=== PATIENT | male | born 1950 | race Caucasian/White ===

== ENCOUNTER 2018-08-24 16:38 | Inpatient (IN) | payer MEDICARE ==
[~2018-08-24] VITALS: Ht 170.2 cm; Wt 78.2 kg
--- NOTE | 2018-08-24 16:57 | NUR ---
[facility] FROM [facility] FOR EVALUATION FOR PACEMAKER PLACEMENT. PT TO [facility] ED THIS AM WITH CO DIZZINESS W/ ACTIVITY AND AT REST. PT WITH SIMILAR EPISODE POST PREVIOUS ME "20 YEARS AGO". PT ARRIVES PWD; DENIES DIZZINESS/SOB/CP. SINUS BARRY ON MONITOR, HR 50'S W/ FREQUENT BIGEMINY. RADIAL PULSES STRONG. REPORTS "I FEEL FINE RIGHT NOW". ERP AT BEDSIDE FOR INITIAL ASSESSMENT. EKG COMPLETED UPON ARRIVAL. FAMILY AT BEDSIDE. BP/SPO2/ECG MONITORING IN PLACE. SINUS BARRY ON MONITOR.
[2018-08-24] MEDS ORDERED: ATOR-2 PO (17:00)
[2018-08-24] MEDS ORDERED: SODIUM CHLORIDE FLUSH 10ML SYR IVF ONE (17:00)
[2018-08-24] MEDS ORDERED: ASPI-496 PO (17:00)
[2018-08-24] MEDS ORDERED: CLON1TAB23 PO (17:00)
[2018-08-24] MEDS ORDERED: FLONASE (17:00)
[2018-08-24 17:11] LABS: BASOPHILS # (AUTO) 0.03 x10^3/uL (0-0.1); BASOPHILS % (AUTO) 1 % (0-1); EOSINOPHILS # (AUTO) 0.33 x10^3/uL (0-0.4); EOSINOPHILS % (AUTO) 5 % (1-7); LYMPHOCYTES # (AUTO) 2.09 x10^3/uL (1-3.4); LYMPHOCYTES % (AUTO) 32 % (22-44); MD NO; MEAN CORPUSCULAR HEMOGLOBIN 33.1 pg (27.5-34.5); MEAN CORPUSCULAR VOLUME 97.2 fL (81-97); MEAN PLATELET VOLUME 10.1 fL (7.4-10.4); MONOCYTES # (AUTO) 0.53 x10^3/uL (0.2-0.8); MONOCYTES % (AUTO) 8 % (2-9); NEUTROPHILS # (AUTO) 3.62 x10^3/uL (1.8-6.8); NEUTROPHILS % (AUTO) 55 % (42-75); PLATELET COUNT 157 x10^3/uL (130-400); RED BLOOD COUNT 4.73 x10^6/uL (4.38-5.82); RED CELL DISTRIBUTION WIDTH 13.9 % (9.4-14.8)
[2018-08-24 17:17] LABS: INTERNATIONAL NORMALIZED RATIO 1.01 (0.93-1.1); PROTHROMBIN TIME 10.6 Seconds (9.6-11.5)
[2018-08-24 17:18] LABS: ALBUMIN 3.5 g/dL (3.4-5.0); ANION GAP 5 mmol/L (5-15); CALCIUM 8.5 mg/dL (8.5-10.1); CHLORIDE 114 mmol/L (98-107); CREATININE 0.79 mg/dL (0.7-1.3)
--- NOTE | 2018-08-24 18:00 | NUR ---
PT RESTING IN GURNEY, AWAKE/ALERT. NAD NOTED. PT REMAINS SINUS BARRY W/ BIGEMINY. AWAITING ADMIT
--- NOTE | 2018-08-24 18:35 | NUR ---
HOSPITALIST AT BEDSIDE.
[2018-08-24] MEDS ORDERED: BISACODYL 10 MG SUPP PR PRN (19:30)
[2018-08-24] MEDS ORDERED: POLYETHYLENE GLYCOL 17 GM PACKET PO PRN (19:30)
[2018-08-24] MEDS ORDERED: ACETAMINOPHEN 325 MG TABLET PO PRN (19:30)
[2018-08-24] MEDS ORDERED: ONDANSETRON ODT 4 MG PO PRN (19:30)
--- NOTE | 2018-08-24 19:30 | NUR ---
PT REQUESTING TO WALK TO BATHROOM FOR BM. PT REFUSING TO USE BEDSIDE COMMODE RECOMMENDED D/T DIZZINESS. PT THEN STATES "I'LL JUST WAIT TILL I GO UPSTAIRS"
--- NOTE | 2018-08-24 20:02 | NUR ---
REPORT TO ELAINE CHONG ON TELE
[2018-08-24 20:33] LABS: FOLATE LEVEL > 20.0 ng/mL (3.1-17.5)
[2018-08-24 20:35] VITALS: BP 132/75
[2018-08-24] MEDS ORDERED: CHOL200078 PO (22:27)
[2018-08-24] MEDS: ATORVASTATIN 20 MG TABLET PO SCH (22:45)
[2018-08-24] MEDS: SODIUM CHLORIDE FLUSH 10ML SYR IVF SCH (22:45)
[2018-08-25 01:14] VITALS: BP 106/66
[2018-08-25 06:37] LABS: BASOPHILS # (AUTO) 0.03 x10^3/uL (0-0.1); BASOPHILS % (AUTO) 0 % (0-1); EOSINOPHILS # (AUTO) 0.46 x10^3/uL (0-0.4); EOSINOPHILS % (AUTO) 6 % (1-7); LYMPHOCYTES # (AUTO) 1.98 x10^3/uL (1-3.4); LYMPHOCYTES % (AUTO) 24 % (22-44); MD NO; MEAN CORPUSCULAR HEMOGLOBIN 33.3 pg (27.5-34.5); MEAN CORPUSCULAR VOLUME 97.9 fL (81-97); MONOCYTES # (AUTO) 0.63 x10^3/uL (0.2-0.8); MONOCYTES % (AUTO) 8 % (2-9); NEUTROPHILS # (AUTO) 5.09 x10^3/uL (1.8-6.8); NEUTROPHILS % (AUTO) 62 % (42-75); PLATELET COUNT 145 x10^3/uL (130-400); RED CELL DISTRIBUTION WIDTH 13.9 % (9.4-14.8)
[2018-08-25 06:49] LABS: ALBUMIN 3.1 g/dL (3.4-5.0); ANION GAP 5 mmol/L (5-15); CALCIUM 8.5 mg/dL (8.5-10.1); CHLORIDE 114 mmol/L (98-107)
[2018-08-25 07:00] LABS: ALANINE AMINOTRANSFERASE 15 U/L (12-78); ALKALINE PHOSPHATASE 83 U/L (45-117); BILIRUBIN,TOTAL 0.9 mg/dL (0.2-1.0); CREATININE 0.92 mg/dL (0.7-1.3); TOTAL PROTEIN 5.8 g/dL (6.4-8.2); TROPONIN I < 0.015 ng/mL (0.000-0.045)
[2018-08-25 07:10] VITALS: BP 111/63
[2018-08-25] MEDS: SENNA/DOCUSATE TABLET PO SCH (09:12)
[2018-08-25] MEDS: ASPIRIN 81 MG TABLET EC PO SCH (09:12)
[2018-08-25] MEDS: SODIUM CHLORIDE FLUSH 10ML SYR IVF SCH ×2 (09:13→22:08)
[2018-08-25 11:55] LABS: TROPONIN I < 0.015 ng/mL (0.000-0.045)
[2018-08-25 12:50] VITALS: BP 122/69
[2018-08-25 19:00] VITALS: BP 122/65
[2018-08-25] MEDS: ATORVASTATIN 20 MG TABLET PO SCH (22:08)
[2018-08-26 01:29] VITALS: BP 112/69
[2018-08-26 07:08] VITALS: BP 121/77
[2018-08-26] MEDS: ASPIRIN 81 MG TABLET EC PO SCH (08:20)
[2018-08-26] MEDS: SODIUM CHLORIDE FLUSH 10ML SYR IVF SCH (08:21)
[2018-08-26] MEDS: SENNA/DOCUSATE TABLET PO SCH (08:21)
== END 2018-08-26 11:28 | disposition home or self-care (01) | DRG 309 ==
LOC: ED 17:10 → EDIP 18:20 → 5SO 21:23 → DCLOUNGE 08-26 11:19
PROVIDERS: ADMIT Internal Medicine; ATTEND Internal Medicine
DX: R00.1 Bradycardia, unspecified (principal); D68.69 Other thrombophilia; I48.91 Unspecified atrial fibrillation; I25.10 Atherosclerotic heart disease of native coronary artery without angina pectoris; E78.5 Hyperlipidemia, unspecified; I47.1 Supraventricular tachycardia; H91.90 Unspecified hearing loss, unspecified ear; I25.2 Old myocardial infarction; Z72.0 Tobacco use; Z80.0 Family history of malignant neoplasm of digestive organs; Z83.3 Family history of diabetes mellitus; Z95.5 Presence of coronary angioplasty implant and graft
CPT/HCPCS: 36415; 71045; 80048; 80053; 82040; 82607; 82746; 83735; 84443; 84484; 85025; 85610; 85730; 93005; 93306; 99285; G0378